=== PATIENT | male | born 1985 | race Caucasian/White ===

== ENCOUNTER 2020-11-21 09:51 | Emergency (ER) | payer BC, SELFPAY ==
[2020-11-21 09:51] VITALS: BP 162/88; PULSE 98; RESP 14; TEMP 36.4; O2SAT 96; BMI 30.8
--- NOTE | 2020-11-21 10:12 | PC.NURSE ---
Pt w/ easy work of breathing. No obvious trauma to right chest.
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
[2020-11-21 12:49] VITALS: BP 134/85; PULSE 79; RESP 18; O2SAT 96
== END 2020-11-21 12:51 | disposition home or self-care (01) ==
PROVIDERS: Emergency Provider Nurse Practitioner Family; PCP Registered Nurse
DX: S70.01XA Contusion of right hip, initial encounter (principal); S20.211A Contusion of right front wall of thorax, initial encounter; M54.2 Cervicalgia; R10.9 Unspecified abdominal pain; R51.9 Headache, unspecified; V89.2XXA Person injured in unspecified motor-vehicle accident, traffic, initial encounter
CPT/HCPCS: 71101; 73502; 81003; 99283

== ENCOUNTER → 2021-09-04 09:58 | Outpatient (CLI) | payer BC, SELFPAY ==
--- NOTE | 2021-09-04 | DI.CT.S_ITS ---
PROCEDURE: CT SINUS SCREEN WO CON INDICATIONS: Chronic pansinusitis TECHNIQUE: Noncontrast 3.0 mm axial images acquired from the frontal sinuses to the mid-sella, with coronal and sagittal reformats. For radiation dose reduction, the following was used: automated exposure control, adjustment of mA and/or kV according to patient size. COMPARISON: None. FINDINGS: Image quality: Excellent. Maxillary Sinuses: No bony remodeling or destruction. Sinuses are clear. Ethmoid Air Cells: No bony remodeling or destruction. Sinuses are clear. Sphenoid Sinuses: No bony remodeling or destruction. Sinuses are clear. Frontal Sinuses: No bony remodeling or destruction. Sinuses are clear. Ostiomeatal Complexes: Ostiomeatal complexes are patent. No Leon cells. Miscellaneous: Visualized intra-orbital contents are normal. No deshaun bullosa or paradoxical turbinate curvature. Anteriorly, there is 4 mm of leftward nasal septal deviation. Posteriorly there is a small rightward osteophyte off of the nasal septum. Posteriorly, the nasal passages are narrowed superiorly. IMPRESSION: 1. Currently, there is no evidence of acute or chronic sinus disease. 2. Patent ostiomeatal complexes. 3. Nasal septal deviation, posterior superior nasal passage narrowing. Dictated by: Jose Prieto M.D. on 09/04/2021 at 10:15 Approved by: Jose Prieto M.D. on 09/04/2021 at 10:20
== END ==
PROVIDERS: PCP Registered Nurse; Referring Provider Otolaryngology; Visit Provider Otolaryngology
DX: J32.4 Chronic pansinusitis (principal); J34.2 Deviated nasal septum; R09.82 Postnasal drip
CPT/HCPCS: 70486